=== PATIENT | female | born 1975 | race Hispanic/Latino ===

== ENCOUNTER 2022-05-11 20:38 | Emergency (ER) | payer OTHER ==
[2022-05-11] MEDS ORDERED: Iopamidol 370 76% 100 ML VIAL FS ONE (20:39)
[2022-05-11] MEDS ORDERED: Fentanyl 100 MCG/2 ML VIAL ONE (20:57)
[2022-05-11] MEDS ORDERED: Ondansetron PF 4 MG/2 ML Vial ONE (20:57)
[2022-05-11 21:14] LABS: #Basophils 0.1 thou/uL (0.0-0.2); #Eosinphils 0.1 thou/uL (0.0-0.7); #Lymphocytes 4.5 thou/uL (1.20-3.40); #Monocytes 0.7 thou/uL (0.11-0.59); #Neutrophils 5.6 thou/uL (1.40-6.50); %Basophils 0.7 % (0.0-1.0); %Eosinophils 1.1 % (0.0-10.0); %Lymphocytes 40.9 % (21.0-51.0); %Monocytes 6.4 % (0.0-10.0); %Neutrophils 50.9 % (42.0-75.0); Hemoglobin 14.2 g/dL (12.0-16.0); Mean Corpuscular HGB CONC 33.9 g/dL (32.0-36.0); Mean Corpuscular Hemoglobin 29.7 pg (27.0-31.0); Mean Corpuscular Volume 87.6 fL (78.0-98.0); Mean Platelet Volume 6.8 fL (7.4-10.4); Platelet Count 265 thou/uL (130-400); RBC Distribution Width 12.3 % (11.5-14.5); Red Blood Cell (RBC) Count 4.78 mill/uL (4.20-5.40); White Blood Cell (WBC) Count 10.9 thou/uL (4.8-10.8)
[2022-05-11 21:29] LABS: ALT (SGPT) 30 U/L (8-55); AST (SGOT) 24 U/L (5-34); Alkaline Phosphatase 108 U/L (40-110); Anion Gap 18 mmol/L (10-20); BUN (Urea Nitrogen) 13 mg/dL (7.0-18.7); Bilirubin, Total 0.3 mg/dL (0.2-1.2); Calc. Creatinine Clearance 0 mL/min (70-130); Calcium 9.3 mg/dL (7.8-10.44); Carbon Dioxide 23 mmol/L (22-29); Chloride 105 mmol/L (98-107); Estimated GFR 87; Globulin 3.6 g/dL (2.4-3.5); Glucose 92 mg/dL (70-105); Lipase 28 U/L (8-78); Potassium 3.7 mmol/L (3.5-5.1); Protein, Total 7.6 g/dL (6.0-8.3); Sodium 142 mmol/L (136-145)
[2022-05-11] MEDS ORDERED: methylPREDNISolone Sod Succ/PF 125 MG/2 ML VIAL ONE (21:54)
[2022-05-11] MEDS ORDERED: Dicyclomine 20 MG TAB ONE (22:07)
== END 2022-05-11 22:13 | disposition home or self-care (01) ==
LOC: BURERS 20:38
DX: K52.9 Noninfective gastroenteritis and colitis, unspecified (principal); K62.5 Hemorrhage of anus and rectum; I10 Essential (primary) hypertension; F17.290 Nicotine dependence, other tobacco product, uncomplicated; Z85.43 Personal history of malignant neoplasm of ovary; Z79.899 Other long term (current) drug therapy
CPT/HCPCS: 74177; 80053; 82274; 83690; 85025; 96374; 96375; J2405; J2930; J3010; Q9967

== ENCOUNTER 2022-05-31 23:48 | Emergency (ER) | payer MEDICAID ==
[2022-06-01] MEDS ORDERED: Ketorolac Tromethamine 60 MG/2 ML VIAL ONE (01:00)
[2022-06-01] MEDS ORDERED: Orphenadrine Citrate 60 MG/2 ML VIAL ONE (01:00)
== END 2022-06-01 01:09 | disposition home or self-care (01) ==
LOC: BURERS 23:48
DX: R60.0 Localized edema (principal); I10 Essential (primary) hypertension; F17.290 Nicotine dependence, other tobacco product, uncomplicated
CPT/HCPCS: 71045; 96372; J1885; J2360

== ENCOUNTER 2022-06-28 19:31 | Emergency (ER) | payer MEDICAID ==
[2022-06-28 20:00] LABS: Bilirubin Negative (Negative); Blood, Urine Negative (Negative); Clarity Clear (Clear); Glucose, Urine (Dipstick) Negative (Negative); Ketone, Urine Negative (Negative); Leukocyte Small (Negative); Nitrite Negative (Negative); Protein, Urine (Dipstick) Negative (Neg-Trace); Specific Gravity, Urine 1.015 (1.005-1.030); Urobilinogen 0.2 mg/dL (Less than 2)
[2022-06-28 20:19] LABS: Bacteria/HPF Rare-Few HPF (None Seen); RBC/HPF 0-3 HPF (0-3)
[2022-06-28] MEDS ORDERED: Ondansetron ODT 4 MG TAB ONE (20:23)
[2022-06-28] MEDS ORDERED: Morphine 4 MG/ML VIAL ONE (20:23)
[2022-06-28 20:34] LABS: #Basophils 0.1 thou/uL (0.0-0.2); #Eosinphils 0.3 thou/uL (0.0-0.7); #Lymphocytes 3.4 thou/uL (1.20-3.40); #Monocytes 0.8 thou/uL (0.11-0.59); #Neutrophils 5.6 thou/uL (1.40-6.50); %Basophils 0.8 % (0.0-1.0); %Eosinophils 2.6 % (0.0-10.0); %Lymphocytes 33.7 % (21.0-51.0); %Monocytes 7.8 % (0.0-10.0); %Neutrophils 55.1 % (42.0-75.0); Hemoglobin 14.5 g/dL (12.0-16.0); Mean Corpuscular HGB CONC 32.3 g/dL (32.0-36.0); Mean Corpuscular Hemoglobin 29.3 pg (27.0-31.0); Mean Corpuscular Volume 90.4 fl (78.0-98.0); Mean Platelet Volume 7.8 fL (7.4-10.4); Platelet Count 250 thou/uL (130-400); RBC Distribution Width 12.2 % (11.5-14.5); Red Blood Cell (RBC) Count 4.96 mill/uL (4.20-5.40); White Blood Cell (WBC) Count 10.1 thou/uL (4.8-10.8)
[2022-06-28 20:53] LABS: ALT (SGPT) 38 U/L (8-55); AST (SGOT) 32 U/L (5-34); Albumin 3.9 g/dL (3.5-5.0); Alkaline Phosphatase 114 U/L (40-110); Anion Gap 15 mmol/L (10-20); BUN (Urea Nitrogen) 13 mg/dL (7.0-18.7); Bilirubin, Total 0.4 mg/dL (0.2-1.2); Calc. Creatinine Clearance 0 mL/min (70-130); Calcium 9.5 mg/dL (7.8-10.44); Carbon Dioxide 25 mmol/L (22-29); Chloride 107 mmol/L (98-107); Estimated GFR 79; Globulin 3.4 g/dL (2.4-3.5); Glucose 95 mg/dL (70-105); Lipase 32 U/L (8-78); Potassium 4.2 mmol/L (3.5-5.1); Protein, Total 7.3 g/dL (6.0-8.3); Sodium 143 mmol/L (136-145)
== END 2022-06-28 23:15 | disposition home or self-care (01) ==
LOC: BURERS 19:31
DX: E86.0 Dehydration (principal); I10 Essential (primary) hypertension; F17.290 Nicotine dependence, other tobacco product, uncomplicated
CPT/HCPCS: 36415; 74176; 80053; 81003; 81015; 83605; 83690; 85025; 87086; 87804; 96360; 96372; J2270; Q0162

== ENCOUNTER 2022-07-09 12:20 | Emergency (ER) | payer MEDICAID ==
[2022-07-09] MEDS ORDERED: Ondansetron ODT 4 MG TAB ONE (12:37)
[2022-07-09] MEDS ORDERED: Ketorolac Tromethamine 30 MG/ML VIAL ONE (12:37)
[2022-07-09] MEDS ORDERED: Phenazopyridine HCl 95 MG TAB ONE (12:44)
[2022-07-09 12:47] LABS: Bilirubin Small (Negative); Blood, Urine Large (Negative); Clarity Turbid (Clear); Glucose, Urine (Dipstick) Negative (Negative); Ketone, Urine Trace mg/dL (Negative); Leukocyte Negative (Negative); Nitrite Positive (Negative); Protein, Urine (Dipstick) > or equal to 300 mg/dL (Neg-Trace); Urobilinogen 0.2 mg/dL (Less than 2)
[2022-07-09 12:49] LABS: Specific Gravity, Urine 1.022 (1.002-1.036)
[2022-07-09 12:50] LABS: RBC/HPF Greater than 50 HPF (0-3)
[2022-07-09 12:51] LABS: WBC/HPF 0-3 HPF (0-3)
[2022-07-09 12:52] LABS: Bacteria/HPF 2+ HPF (None Seen)
[2022-07-09 13:10] LABS: #Basophils 0.1 thou/uL (0.0-0.2); #Eosinphils 0.2 thou/uL (0.0-0.7); #Lymphocytes 3.7 thou/uL (1.20-3.40); #Monocytes 0.8 thou/uL (0.11-0.59); #Neutrophils 5.8 thou/uL (1.40-6.50); %Basophils 0.6 % (0.0-1.0); %Eosinophils 1.7 % (0.0-10.0); %Monocytes 7.6 % (0.0-10.0); %Neutrophils 55.2 % (42.0-75.0); Hemoglobin 14.6 g/dL (12.0-16.0); Mean Corpuscular Hemoglobin 29.3 pg (27.0-31.0); Mean Corpuscular Volume 88.6 fl (78.0-98.0); Mean Platelet Volume 7.5 fL (7.4-10.4); Platelet Count 260 10x3/uL (130-400); Red Blood Cell (RBC) Count 4.98 mill/uL (4.20-5.40); White Blood Cell (WBC) Count 10.5 10x3/uL (4.8-10.8)
[2022-07-09] MEDS ORDERED: cefTRIAXone\\ROCEPHIN 2 GM VIAL ONE (13:11)
[2022-07-09] MEDS ORDERED: Sodium Chloride 0.9% 100 ML ONE (13:12)
[2022-07-09 13:25] LABS: Anion Gap 15 mmol/L (10-20); BUN (Urea Nitrogen) 14 mg/dL (7.0-18.7); Calc. Creatinine Clearance 0 mL/min (70-130); Calcium 9.2 mg/dL (7.8-10.44); Carbon Dioxide 22 mmol/L (22-29); Chloride 107 mmol/L (98-107); Estimated GFR 88; Glucose 107 mg/dL (70-105); Potassium 3.7 mmol/L (3.5-5.1); Sodium 140 mmol/L (136-145)
[2022-07-09] MEDS ORDERED: Fentanyl 100 MCG/2 ML VIAL ONE (14:05)
== END 2022-07-09 14:46 | disposition home or self-care (01) ==
LOC: BURERS 12:20
DX: N20.0 Calculus of kidney (principal); N23 Unspecified renal colic; I10 Essential (primary) hypertension; F17.200 Nicotine dependence, unspecified, uncomplicated; Z79.899 Other long term (current) drug therapy
CPT/HCPCS: 36415; 80048; 81003; 81015; 85025; 87086; 96365; 96372; 96375; J0696; J1885; J3010; J3490; Q0162

== ENCOUNTER 2023-01-02 16:15 | Emergency (ER) | payer MEDICAID ==
[2023-01-02] MEDS ORDERED: HYDROcodone/Acetaminophen 10/325 mg Tablet ONE (16:48)
[2023-01-02] MEDS ORDERED: Doxycycline 100 MG CAP ONE (16:49)
[2023-01-02] MEDS ORDERED: Amoxicillin/Potassium Clav 875 MG TAB ONE (16:49)
[2023-01-02] MEDS ORDERED: Bacitracin 1 PK ONE (16:49)
== END 2023-01-02 17:01 | disposition home or self-care (01) ==
LOC: BURERS 16:15
DX: L03.011 Cellulitis of right finger (principal); I10 Essential (primary) hypertension
CPT/HCPCS: 87070; 87205; 99283